=== PATIENT | female | born 1965 | race Hispanic/Latino ===

== ENCOUNTER 2021-04-02 20:42 | Emergency (ER) | payer OTHER ==
[~2021-04-02] VITALS: Ht 167.6 cm; Wt 96.6 kg
[2021-04-02] MEDS ORDERED: IBUPROFEN 600 MG TAB PO STA (20:52)
[2021-04-02] MEDS ORDERED: IBUPROFEN 600 MG TAB ONE (21:06)
== END 2021-04-02 22:11 | disposition home or self-care (01) ==
LOC: ER 20:56
DX: S60.212A Contusion of left wrist, initial encounter (principal); W01.0XXA Fall on same level from slipping, tripping and stumbling without subsequent striking against object, initial encounter; Y93.01 Activity, walking, marching and hiking; Y92.002 Bathroom of unspecified non-institutional (private) residence as the place of occurrence of the external cause; I10 Essential (primary) hypertension; E11.9 Type 2 diabetes mellitus without complications
CPT/HCPCS: 99283